=== PATIENT | male | born 1965 | race Caucasian/White ===

== ENCOUNTER → 2025-03-15 16:46 | Outpatient (CLI) | payer OTHER, SELFPAY ==
--- NOTE | 2025-03-15 16:49 | EKG_ITS ---
[address] [address] Test Date: 2025-03-15 Pat Name: Fausto Vazquez Department: Room: Gender: Male Finish Painter: JENNA : 1965 Requested By: Order Number: [id number] Reading MD: Rene Conte Measurements Intervals [place] Rate: 53 P: 20 PA: 206 QRS: 33 QRSD: 100 T: 16 QT: 436 QTc: 409 Interpretive Statements Sinus bradycardia Electronically Signed On 03-16-2025 8:42:50 PDT by Rene Conte
[2025-03-15 17:38] LABS: Add Manual Diff / Slide Review NO; Basophils Absolute Auto 0 /uL (0-100); Basophils Percent Auto 0.4 % (0-2); Eosinophils Absolute Auto 0 /uL (0-450); Eosinophils Percent Auto 0.1 % (2-4); Hematocrit 41.6 % (41-53); Hemoglobin 14.2 g/dL (13.5-17.5); Lymphocytes Absolute Auto 1700 /uL (1100-4500); Lymphocytes Percent Auto 27.2 % (25-40); Mean Corpuscular HGB Conc 34.2 % (30-36); Mean Corpuscular Hemoglobin 32.6 PG (26-34); Mean Corpuscular Volume 95.4 fL (80-100); Monocytes Absolute Auto 400 /uL (0-900); Monocytes Percent Auto 7.1 % (3-14); Neutrophils Absolute Auto 4000 /uL (1500-7000); Neutrophils Percent Auto 65.2 % (50-75); Platelet Count 243 X10^3/uL (150-400); Red Blood Cell Count 4.36 X10^6/uL (4.5-5.9); Red Cell Distribution Width 13.9 % (11.6-14.8); White Blood Cell Count 6.1 X10^3/uL (4.5-11.0)
[2025-03-15 17:46] LABS: Hemoglobin A1C% w Est Avg Glu 5.5 % (4.0-6.0)
[2025-03-15 17:55] LABS: Albumin 4.6 g/dL (3.5-5.0); BUN Creatinine Ratio 27.7 (6-22); Blood Urea Nitrogen 31 mg/dL (9-20); Calcium 9.6 mg/dL (8.4-10.2); Carbon Dioxide 29 mmol/L (22-32); Chloride 100 mmol/L (98-107); Estimated Glomerular Filt Rate > 60 mL/min (>60); Glucose 88 mg/dL (70-99); HEMOLYSIS < 15 (0-50); Potassium 4.3 mmol/L (3.4-5.1); Sodium 140 mmol/L (137-145)
[2025-03-15 18:02] LABS: Prealbumin 29.9 mg/dL (17.6-36.0)
[2025-03-15 18:13] LABS: Vitamin D 25 Hydroxy (D3) 45.3 ng/mL (30.0-100.0)
== END ==
PROVIDERS: PCP Family Medicine; Referring Provider Orthopaedic Surgery Adult Reconstructive Orthopaedic Surgery; Visit Provider Orthopaedic Surgery Adult Reconstructive Orthopaedic Surgery
DX: Z01.818 Encounter for other preprocedural examination (principal)
CPT/HCPCS: 36415; 80048; 82040; 82306; 83036; 84134; 85025; 93005

== ENCOUNTER 2025-06-17 06:26 | Day surgery (SDC) | payer OTHER, SELFPAY ==
[2025-06-07 14:34] VITALS: BMI 25.6
[2025-06-17] VITALS (7 sets, daily range): BP systolic 120–138; BP diastolic 58–80; PULSE 50–67; RESP 16; TEMP 36.2; O2SAT 95–100; BMI 25.6
--- NOTE | 2025-06-17 06:00 | DI.RAD.S_ITS ---
PROCEDURE: XR KNEE RT 1TO2V INDICATIONS: s/p partial knee arthroplasty TECHNIQUE: 2 view(s) of the knee acquired. COMPARISON: None. FINDINGS: Bones: Patient is status post right medial femoral tibial compartment arthroplasty. Hardware components are in expected positions. Visualized bony structures are intact. Soft tissues: Overlying postoperative changes are noted. IMPRESSION: Expected post-operative appearance of medial femoral tibial compartment arthroplasty. Dictated by: Jeremy Lopez M.D. on 06/17/2025 at 11:41 Approved by: Jeremy Lopez M.D. on 06/17/2025 at 11:41
[2025-06-17] MEDS: ACETAMINOPHEN 325 MG TABLET 975 MG PO (07:01)
[2025-06-17] MEDS: MELOXICAM 7.5 MG TABLET 15 MG PO (07:01)
[2025-06-17] MEDS: LACTATED RINGERS 1,000 ML 84 ML IV ×2 (07:20→08:56)
--- NOTE | 2025-06-17 07:44 | PM.PREOP ---
Pre-operative Note Interval Note History & Physical reviewed/Exam performed by Physician: Yes Changes to H&P: No
[2025-06-17] MEDS: TRANEXAMIC ACID 1,000 MG VIAL 1000 MG INJ ×2 (08:10→10:15)
--- NOTE | 2025-06-17 08:37 | SUR.OPER ---
Supine on padded OR bed. Pillow under head, arms secured on padded armboards <90 degree abduction. Safety belt across torso. Non-operative leg secured with tape over blanket over lower leg. Operative leg secured in DeMayo/Angel/Nathe positioner. Foam padded brace at thigh of operative leg. Surgeon in room to approve final position, all pressure points padded and protected.
[2025-06-17] MEDS: KETOROLAC 30 MG/ML VIAL 15 MG INJ (08:54)
--- NOTE | 2025-06-17 10:39 | P.OP_ITS ---
Operative Date/Time/Diagnoses Date of procedure: 06/17/25 Time of procedure: 07:45 Pre-op diagnosis: Medial compartment right knee osteoarthritis Post-op diagnosis: same Procedure & Clinicians Procedure: Robotic assisted medial unicompartmental right knee arthroplasty Same procedure(s) as scheduled: Yes Surgeon: Manolo Jonas [employer] Worker: Yanira Calhoun Anesthesia Type: Spinal, Sedation and Local Operative Notes Findings: Complete cartilage loss in the medial compartment Applied: implant(s) Estimated Blood Loss (mL): 150 Tourniquet time (min): 96 Procedure in detail: Robotic assisted right medial unicompartmental knee arthroplasty using the Maki and NephTeranode journey 2 system Implants: Size 9 Femoral Component Size 10 Tibial Component Size 8 mm Polyethylene Procedure Summary: This 60-year-old male patient had isolated medial compartment arthritis. We discussed partial versus total knee arthroplasty in obtained an MRI to evaluate this. On his MRI he had fairly significant degenerative changes in his proximal tibiofibular joint but not the lateral compartment of his proper knee joint. I discussed with him that a partial knee replacement would not address the tibiofibular arthritis and that he could note symptoms in that region of his posterior lateral knee in the future should that become symptomatic (it is not at this time) but that this did not dissuade me from moving forward with a partial knee because a total knee arthroplasty also would not address those arthritic changes. I therefore move forward with a partial knee today. Intraoperatively I found severe erosive changes with the burnished bone on both the femoral and tibial compartments. The ACL was intact. The lateral compartment did not show any severe arthritic changes although this was only partially visualized. I utilized manual instrumentation to cut the tibia and robotic assistance to bur the femur. The starting varus on the robotic measurement was 8? and it finished at the same 8?. This aligned approximately with his preoperative standing long leg scanogram which had showed 11? of varus. Procedure in Detail: This patient was seen preoperatively and evaluated for knee pain which was refractory to numerous nonoperative treatment modalities. Their pain correlated with radiographic changes demonstrating significant degeneration in the knee joint. The risks and benefits of continued nonoperative management versus operative management were discussed at length and all of the patient?s questions were answered. Additional educational materials providing further details beyond our discussion in clinic were provided via a publicly available patient education video which included the incidence of medical complications associated with total knee arthroplasty, reasons for revision following total knee arthroplasty, and patient satisfaction rates following unicompartmental knee arthroplasty. With this understanding of the risks inherent to the procedure, the patient elected to move forward with operative management. Following preoperative optimization, the patient was scheduled for surgery. The patient was met in the preoperative holding area the day of the procedure and all questions were answered. The patient?s nares were swabbed with betadine in order to decolonize them from MRSA. Informed consent was signed and the left limb was marked with indelible ink. The patient was brought back to the operating room where anesthesia was induced. The patient was transferred to the operating table and all bony prominences were padded. The operative site was prepped and draped in the usual sterile fashion. A second prep stick was utilized following drape placement. The incision was marked corresponding to the medial aspect of the tibial tubercle and the patella. Ioban was wrapped circumferentially around the knee. Prior to incision, tranexamic acid and cefazolin were administered. Templating images were displayed. A timeout procedure was performed verifying the patient?s identity, medical comorbidities, allergies, relevant medications, anesthesia type and the surgical plan. All present were in agreement. The assistance of a physician photography assistant was required for positioning, room setup, soft tissue retraction and wound closure. Without this assistance, the procedure would have been significantly more challenging and time consuming. ? The tourniquet was inflated prior to incision. I made an anterior incision over the knee, dissected through the subcutaneous tissues and identified the lateral border of the VMO. Medial and lateral soft tissue flaps were developed. A mid vastus arthrotomy was performed. ?I released tissue off of the proximal medial tibia. ?I inserted pins for the robotic rays into the femur and tibia. ?I mapped out the distal femur and proximal tibia using the robotic array and mapped out the hip knee ankle axis as well. ??The varus deformity was approximately 8 ? on the robotic array. ?I made a plan which would involve burring of the tibia and femur using the robotic system which would lead to appropriate knee balance once implants were placed. ?After reviewing all parameters on this plan I felt that it was appropriate and proceeded with burring. I began with the tibial side where the robotic array had planned for a tibial component in 0? of varus and 5? of slope. I replicated this using manual instrumentation for the tibial side by positioning a tibial resection guide which would result in those parameters. I cleared the bone. I then burred the femoral side including creating lug holes using the robotic system. Verified my tibial cut using the robotic array and confirmed that it was in fact in 5? of slope and 0? of varus as had been intended. I inserted trials and prep for them on the tibial side by punching the keel and drilling the lug holes through the trial. ?I found these had appropriate parameters both with my gross assessment and with the robotic assessment. ?I therefore implanted those components. ? All bony ends were copiously irrigated and dried. ?Cement was introduced. ?The tibial component was inserted and excess cement was removed ensuring no cement had leaked out the back of the knee. ?Cement was then placed on the femur and the femoral component was inserted while maintaining pressure on the anterior tibial base plate to prevent lift-off. ?A polyethylene insert trial was then placed. ?The knee was placed into full extension and allowed to dry. ?Once cement had dried excess cement was removed, the tourniquet was taken down, and I again trialed with the 2 mm and 3 mm spacer. ?I found that the 8 mm trial polyethylene had the correct gross kinematics on my assessment that I desired and I therefore placed the final polyethylene insert. ?The tissues were briefly soaked in peroxide and Betadine as a dilute mixture and then the knee was copi ously irrigated. ?TXA was administered. The arthrotomy was closed with nonabsorbable interrupted suture as well as an absorbale running Vycril suture extending up into the VMO split ensuring that th is extended to the top of the arthrotomy. This was backed up with running barbed suture throughout the arthrotomy. A barbed suture was used in the subcutaneous tissues. The skin was closed with 2-0 and 3-0 sutures. Surgical glue was applied and a soft dressing was placed. The sponge, instrument and needle counts were reported as being correct at the end of the case. ?No obvious complications occurred. The patient was transferred from the operating table back to a stretcher. The patient emerged from anesthesia without difficulty and was taken to the PACU in a stable condition. Plan for aftercare: - Weightbearing as tolerated - Mobilization as soon as the patient has recovered from anesthesia - Aspirin 81 twice per day for DVT prophylaxis - Multimodal pain regimen with no IV opioids ordered - Anticipate discharge home later today - Follow up at [facility] in 2 weeks - Detailed postoperative instructions available at [email or web address] Complications: none Post-operative Condition: stable Disposition: PACU
--- NOTE | 2025-06-17 12:24 | SUR.PHASEII ---
7830 family at bedside. pt able to raise legs and bend right knee. waiting lunch. vss
[2025-06-17] MEDS: ACETAMINOPHEN IV 1,000 MG/100 ML VIAL 400 MG IV (13:27)
--- NOTE | 2025-06-17 13:53 | SUR.PHASEII ---
good PMS rle. able to stand with walker at side of bed. PT called. left message. Dr Jonas visits.
--- NOTE | 2025-06-17 14:01 | SUR.PHASEII ---
1230 - Ate lunch - 2 sandwiches. Family at bedside.
--- NOTE | 2025-06-17 15:01 | SUR.PHASEII ---
1430 - ambulates easily with wallker. voids x 1. Dr Jonas visits again and ok's pt to be discharged without PT seeing him.
== END 2025-06-17 14:30 | disposition home or self-care (01) ==
PROVIDERS: PCP Family Medicine; Referring Provider Orthopaedic Surgery Adult Reconstructive Orthopaedic Surgery; Visit Provider Orthopaedic Surgery Adult Reconstructive Orthopaedic Surgery
PROC: (CPT 27446; principal; 2025-06-17 07:45)
DX: M17.11 Unilateral primary osteoarthritis, right knee (principal); R73.03 Prediabetes
CPT/HCPCS: 27446; S2900; 73560; 82962; C1776; C1713; J0131; J0690; J1100; J1885; J2405; J2704